=== PATIENT | female | born 1935 | race Two or more races ===

== ENCOUNTER 2019-08-07 12:44 | Inpatient (IN) | payer OTHER ==
[~2019-08-07] VITALS: Ht 162.6 cm; Wt 44.5 kg
[2019-08-13] MEDS ORDERED: COZAAR100 MG PO (10:09)
[2019-08-13] MEDS ORDERED: FOSAMAX70 MG PO (10:10)
[2019-08-13] MEDS ORDERED: METROPOLOL PO (10:10)
[2019-08-20] MEDS ORDERED: METOPROLOL SUCC25 MG PO (08:10)
[2019-08-21] MEDS ORDERED: OXYC1TAB9 PO (16:58)
[2019-08-21] MEDS ORDERED: POLY119PG PO (16:58)
== END 2019-08-21 17:19 | disposition home or self-care (01) | DRG 348 ==
LOC: SURG 08-13 08:45 → O/R 08-20 06:00 → SURG 08-20 06:00
PROVIDERS: ADMIT Colon & Rectal Surgery
PROC: 3E0T3BZ Introduction of Anesthetic Agent into Peripheral Nerves and Plexi, Percutaneous Approach (ICD-10-PCS; 2019-08-20)
PROC: 0DBP7ZZ Excision of Rectum, Via Natural or Artificial Opening (ICD-10-PCS; principal; 2019-08-20 15:15)
DX: C20 Malignant neoplasm of rectum (principal); K92.1 Melena; I10 Essential (primary) hypertension

== ENCOUNTER 2020-08-20 07:15 | Day surgery (SDC) | payer OTHER ==
[~2020-08-20 07:15] MED LIST: COZAAR100 MG PO; FOSAMAX70 MG PO; METOPROLOL SUCC25 MG PO; METROPOLOL PO; OXYC1TAB9 PO; POLY119PG PO
== END 2020-08-20 12:35 | disposition home or self-care (01) ==
LOC: AMB-ENDOS 07:15
PROVIDERS: ATTEND Colon & Rectal Surgery
DX: D12.8 Benign neoplasm of rectum (principal); K64.1 Second degree hemorrhoids; Z20.828 Contact with and (suspected) exposure to other viral communicable diseases